=== PATIENT | male | born 1985 | race Caucasian/White ===

== ENCOUNTER 2024-12-09 11:46 | Emergency (ER) | payer SELFPAY ==
[~2024-12-09] VITALS: Ht 172.7 cm; Wt 95.3 kg
[2024-12-09 11:47] VITALS: O2SAT 98
[2024-12-09 11:52] VITALS: BP 120/86; PULSE 95; RESP 14; TEMP 36.4; O2SAT 100
[2024-12-09 12:31] LABS: BASOPHILS % 0.3 % (0.0-2.0); EOSINOPHILS % 3.7 % (0.0-5.0); HEMATOCRIT. 43.3 % (42.0-52.0); HEMOGLOBIN. 14.3 g/dL (14.0-18.0); LYMPHOCYTES % 8.6 % (20.0-50.0); MEAN CORPUSCULAR VOLUME 88.1 fL (80.0-94.0); MEAN PLATELET VOLUME 7.3 fl (7.4-10.4); MONOCYTES % 8.1 % (2.0-8.0); NEUTROPHILS % 79.3 % (40.0-76.0); PLATELET 311 x1000/uL (130-400); RED BLOOD CELL COUNT 4.92 mill/uL (4.7-6.1); RED CELL DISTRIBUTION WIDTH 13.7 % (11.6-14.6); WHITE BLOOD COUNT 13.1 x1000/uL (4.5-11.0)
[2024-12-09] MEDS ORDERED: CEPH500C2 MT (12:52)
[2024-12-09] MEDS ORDERED: SULF1TAB48 MT (12:52)
[2024-12-09 12:53] LABS: CHLORIDE 104 mEq/L (98-107); POTASSIUM 4.1 mEq/L (3.5-5.1); SODIUM 138 mEq/L (136-145)
[2024-12-09 12:54] LABS: CARBON DIOXIDE 26 mEq/L (21-32)
[2024-12-09 12:55] LABS: CALCIUM 9.8 mg/dL (8.7-10.4)
[2024-12-09 12:59] LABS: CREATININE 0.8 mg/dL (0.6-1.3); GLUCOSE 112 mg/dL (70-105); UREA NITROGEN BLOOD 13 mg/dL (9-23)
[2024-12-16] MEDS ORDERED: SULF1TAB48 MT (15:47)
[2024-12-16] MEDS ORDERED: AMOX1TAB16 MT (15:47)
== END 2024-12-09 13:57 | disposition home or self-care (01) ==
LOC: ER 11:46
DX: L03.116 Cellulitis of left lower limb (principal)
CPT/HCPCS: 36415; 80048; 85025; 99283

== ENCOUNTER 2025-02-04 13:49 | Inpatient (IN) | payer OTHER, MEDICAID ==
[~2025-02-04] VITALS: Ht 175.3 cm; Wt 90.7 kg
[~2025-02-04 13:49] MED LIST: SULF1TAB48 MT
[2025-02-04] MEDS ORDERED: VANCOMYCIN 1000MG/250ML 250 ML IV STA ×2 (14:19)
[2025-02-04] MEDS ORDERED: LACTATED RINGERS 2,000 ML IV SCH (14:30)
[2025-02-04] MEDS: PIPERACILLIN/TAZO 3.375G/50ML 50 ML IV STA (14:54)
[2025-02-04 15:31] LABS: BASOPHILS % 0.6 % (0.0-2.0); EOSINOPHILS % 1.1 % (0.0-5.0); HEMATOCRIT. 39.2 % (42.0-52.0); HEMOGLOBIN. 13.7 g/dL (14.0-18.0); LYMPHOCYTES % 21.3 % (20.0-50.0); MEAN CORPUSCULAR HEMOGLOBIN 29.3 pg (28.0-32.0); MEAN CORPUSCULAR HGB CONC 34.9 g/dL (31.0-37.0); MEAN PLATELET VOLUME 7.9 fl (7.4-10.4); MONOCYTES % 7.2 % (2.0-8.0); NEUTROPHILS % 69.8 % (40.0-76.0); PLATELET 289 x1000/uL (130-400); RED BLOOD CELL COUNT 4.66 mill/uL (4.7-6.1); RED CELL DISTRIBUTION WIDTH 13.6 % (11.6-14.6); WHITE BLOOD COUNT 7.4 x1000/uL (4.5-11.0)
[2025-02-04 15:38] LABS: CARBON DIOXIDE 26 mEq/L (21-32); CHLORIDE 104 mEq/L (98-107); POTASSIUM 3.5 mEq/L (3.5-5.1); SODIUM 139 mEq/L (136-145)
[2025-02-04 15:39] LABS: CALCIUM 9.4 mg/dL (8.7-10.4)
[2025-02-04 15:43] LABS: CREATININE 0.9 mg/dL (0.6-1.3); PROTHROMBIN TIME 10.6 sec (9.6-11.0)
[2025-02-04 15:44] LABS: GLUCOSE 95 mg/dL (70-105); UREA NITROGEN BLOOD 11 mg/dL (9-23)
[2025-02-04 15:45] LABS: ALANINE AMINOTRANSFERASE 43 IU/L (10-49); ALBUMIN 4.8 g/dL (3.2-4.8); ASPARTATE AMINOTRANSFERASE 39 IU/L (<34)
[2025-02-04 15:46] LABS: BILIRUBIN DIRECT 0.4 mg/dL (<=3.0); BILIRUBIN TOTAL 1.3 mg/dL (0.1-1.0); PROTEIN TOTAL 7.8 g/dL (6.0-8.3)
[2025-02-04] MEDS: VANCOMYCIN 2GM PMX (XELLIA) 400 ML IV ONE (15:50)
[2025-02-04] MEDS ORDERED: IOHEXOL-300 100 ML BOTTLE ONE (16:17)
[2025-02-04 17:08] VITALS: BP 125/66; PULSE 69; RESP 18; TEMP 37
[2025-02-04 17:10] VITALS: BP 135/88; PULSE 95; RESP 20; TEMP 36.1; O2SAT 99
[2025-02-04] MEDS ORDERED: KETOROLAC 30MG/ML VIAL IV PRN (17:15)
[2025-02-04] MEDS ORDERED: ONDANSETRON HCL 4MG/2ML INJ IV PRN (17:15)
[2025-02-04 20:00] VITALS: BP 135/83; PULSE 98; RESP 16; TEMP 36.7; O2SAT 98
[2025-02-04] MEDS: CEFTRIAXONE 1GM/50ML 50 ML IV SCH (21:35)
[2025-02-05] VITALS: BP 132/86; PULSE 89; RESP 17; TEMP 36.7; O2SAT 98
[2025-02-05] MEDS: VANCOMYCIN 1G PREMIX 200 ML IV SCH (02:14)
[2025-02-05] MEDS ORDERED: AMOX1TAB16 MT (10:51)
[2025-02-05] MEDS ORDERED: SULF1TAB48 MT (10:51)
[2025-02-05] MEDS: VANCOMYCIN 1.25GM/250ML IV SCH (11:06)
[2025-02-05 12:00] VITALS: BP 114/84; PULSE 83; RESP 18; TEMP 36.7; O2SAT 99
[2025-02-05 16:00] VITALS: BP 140/82; PULSE 87; RESP 18; TEMP 36.5; O2SAT 100; O2SAT 99
[2025-02-05 16:07] VITALS: BP 114/84; PULSE 83; TEMP 98; O2SAT 99
== END 2025-02-05 16:30 | disposition home or self-care (01) | DRG 383 ==
LOC: ER 13:49 → EDBEDREQ 14:25 → 6WST 15:00 → EDBEDREQ 15:10
PROVIDERS: ADMIT Internal Medicine; ATTEND Internal Medicine
DX: L03.116 Cellulitis of left lower limb (principal); L97.329 Non-pressure chronic ulcer of left ankle with unspecified severity
CPT/HCPCS: 36415; 73701; 80048; 80076; 85025; 86850; 86900; 93005; 93971; 99291; A4606; J0696; J2543; J3370; Q9967